=== PATIENT | male | born 1945 | race Caucasian/White ===

== ENCOUNTER 2022-10-04 11:13 | Observation (INO) | payer OTHER, MEDICARE, BC ==
[~2022-10-04] VITALS: Ht 182.9 cm; Wt 66.0 kg
[2022-10-04 12:24] LABS: BASOPHILS ABSOLUTE AUTO 0.04 K/mm3 (0.00-0.23); BASOPHILS PERCENT AUTO 0 % (0-2); EOSINOPHILS ABSOLUTE AUTO 0.02 K/mm3 (0.00-0.68); EOSINOPHILS PERCENT AUTO 0 % (0-6); Hematocrit 43.1 % (37.0-53.0); Hemoglobin 15.1 g/dL (13.5-17.5); IMMATURE GRAN ABSOLUTE AUTO 0.02 K/mm3 (0.00-0.10); IMMATURE GRAN PERCENT AUTO 0 % (0-1); LYMPHOCYTES ABSOLUTE AUTO 0.56 K/mm3 (0.84-5.20); LYMPHOCYTES PERCENT AUTO 6 % (21-46); MONOCYTES ABSOLUTE AUTO 0.87 K/mm3 (0.16-1.47); MONOCYTES PERCENT AUTO 9 % (4-13); Mean Corpuscular HGB 31.8 pg (26.0-34.0); Mean Corpuscular Volume 91 fL (80-100); Mean Platelet Volume 9.3 fL (9.1-12.4); NEUTROPHILS ABSOLUTE AUTO 8.22 K/mm3 (1.96-9.15); NEUTROPHILS PERCENT AUTO 85 % (41-73); Platelet Count 237 K/mm3 (150-400); RDW Coefficient Variation 14.3 % (11.7-14.2); RDW Standard Deviation 47.9 fL (35.1-46.3); Red Blood Cell Count 4.75 M/mm3 (4.30-5.90); White Blood Cell Count 9.73 K/mm3 (4.00-11.30)
[2022-10-04 12:44] LABS: Albumin, Blood 3.1 g/dL (3.4-5.0); Albumin/Globulin Ratio 0.8 (0.8-1.8); Bilirubin, Total 0.2 mg/dL (0.1-1.0); Bun/Creatinine Ratio 16.3 (12.0-20.0); Calcium, Blood 8.8 mg/dL (8.5-10.1); Creatinine, Blood 0.74 mg/dL (0.60-1.20); Globulin, Blood 3.8 g/dL (2.2-4.0); Potassium, Blood 4.1 mmol/L (3.5-5.5); Total Protein, Blood 6.9 g/dL (6.4-8.2)
[2022-10-04 13:13] LABS: Influenza A, PCR NEGATIVE (NEGATIVE); Influenza B, PCR NEGATIVE (NEGATIVE); Resp Syncytial Virus, PCR NEGATIVE (NEGATIVE); SARS-Cov-2 (COVID-19) PCR, MMC NEGATIVE (NEGATIVE)
[2022-10-04 13:47] LABS: Source, Urine Clean Catch
[2022-10-04 13:51] LABS: Appearance, Urine Hazy (Clear); Bilirubin, Urine Neg (Neg); Blood, Urine 1+ (Neg); Color, Urine Yellow (P-Yellow); Glucose Qualitative, Urine Neg (Neg); Ketones, Urine 1+ (Neg); Leukocyte Esterase, Urine 1+ (Neg); Nitrite, Urine Neg (Neg); Protein, Urine Neg (Neg); Specific Gravity, Urine 1.015 (1.003-1.022); Urobilinogen, Urine NORM (Normal)
[2022-10-04 14:21] LABS: Red Blood Cells, Urine 0-2 /hpf (0-2)
[2022-10-04 14:22] LABS: Bacteria Few /hpf; Squamous Epithelial Cells Rare /hpf (Few)
[2022-10-04 15:08] LABS: Thyroid Stimulating Hormone 1.54 uIU/mL (0.360-4.800)
[2022-10-04] MEDS ORDERED: LEVO750 PO (16:11)
[2022-10-04] MEDS ORDERED: PRIM250 PO (16:45)
[2022-10-04] MEDS ORDERED: Aspir 8181 MG PO (16:45)
[2022-10-04] MEDS ORDERED: Lisinopril2.5 MG PO (16:47)
[2022-10-04] MEDS ORDERED: GABA400 PO (16:47)
[2022-10-04] MEDS ORDERED: CELE200 PO (16:47)
[2022-10-04] MEDS ORDERED: ZYRTEC10 M2 PO (16:48)
[2022-10-04] MEDS ORDERED: Vitamin D1000 UNI1 PO (16:48)
[2022-10-04] MEDS ORDERED: Voltaren100 GM (16:49)
[2022-10-04] MEDS ORDERED: STIOLTO RESPIMAT4 G1 IH (16:49)
[2022-10-04] MEDS ORDERED: Flomax0.4 MG PO (16:49)
--- NOTE | 2022-10-04 20:51 | NUR ---
RECEIVED REPORT FROM LING STEWART AND PT ARRIVED TO UNIT FROM ED VIA BED TRANSPORT AT 1999. A&Ox4. PLEASANT AND COOPERATIVE WITH CARE. IV HAS BEEN REMOVED D/T PT ORIGINALLY BEING DC'D. WILL REPLACE D/T TELE STATUS AND IV ABx ORDERS.
[2022-10-05 05:18] LABS: BASOPHILS ABSOLUTE AUTO 0.04 K/mm3 (0.00-0.23); BASOPHILS PERCENT AUTO 1 % (0-2); EOSINOPHILS PERCENT AUTO 1 % (0-6); Hematocrit 39.1 % (37.0-53.0); Hemoglobin 13.7 g/dL (13.5-17.5); IMMATURE GRAN ABSOLUTE AUTO 0.03 K/mm3 (0.00-0.10); IMMATURE GRAN PERCENT AUTO 0 % (0-1); LYMPHOCYTES ABSOLUTE AUTO 1.49 K/mm3 (0.84-5.20); LYMPHOCYTES PERCENT AUTO 19 % (21-46); MONOCYTES ABSOLUTE AUTO 1.22 K/mm3 (0.16-1.47); MONOCYTES PERCENT AUTO 16 % (4-13); Mean Corpuscular HGB 31.8 pg (26.0-34.0); Mean Corpuscular Volume 91 fL (80-100); Mean Platelet Volume 9.1 fL (9.1-12.4); NEUTROPHILS ABSOLUTE AUTO 4.96 K/mm3 (1.96-9.15); NEUTROPHILS PERCENT AUTO 63 % (41-73); Platelet Count 197 K/mm3 (150-400); RDW Coefficient Variation 14.4 % (11.7-14.2); RDW Standard Deviation 48.1 fL (35.1-46.3); Red Blood Cell Count 4.31 M/mm3 (4.30-5.90); White Blood Cell Count 7.84 K/mm3 (4.00-11.30)
[2022-10-05 05:45] LABS: Bun/Creatinine Ratio 13.5 (12.0-20.0); Calcium, Blood 7.6 mg/dL (8.5-10.1); Creatinine, Blood 0.67 mg/dL (0.60-1.20); Potassium, Blood 3.8 mmol/L (3.5-5.5)
--- NOTE | 2022-10-05 06:25 | NUR ---
OXYGEN THERAPY TEACHER SUMMARY: A&Ox4. PLEASANT AND COOPERATIVE WITH CARE. STRENGTH IMPROVING SINCE COMING TO MEDICAL FLOOR AND HAS BEEN ABLE TO USE BEDSIDE URINAL ON HIS OWN. IV WAS REMOVED IN ED LAST NIGHT WHEN PT WAS BELIEVED TO BE DCing HOME, SO NEW IV PLACED IN RIGHT FA THIS AM FOR IV ABx LATER. TELE NSR W/ BBB. CRACKLES AUSCULTATED IN BILATERAL BASES. ESSENTIAL TREMOR AT BASLINE. VSS. WILL REPORT TO ONCOMING RN.
[2022-10-05] MEDS ORDERED: ALBU90OI6 INH (07:20)
[2022-10-05] MEDS ORDERED: SALONPAS PATCH1 EACH TOP (07:22)
[2022-10-05] MEDS ORDERED: NITR100CA PO (07:24)
[2022-10-05] MEDS ORDERED: OMEGA-3 1,0501 EACH PO (07:25)
[2022-10-05] MEDS ORDERED: ZINC OXIDE57 GM TOP (07:25)
[2022-10-05] MEDS ORDERED: STIOLTO RESPIMAT4 G1 IH (07:26)
--- NOTE | 2022-10-05 16:24 | NUR ---
DAYSHIFT SUMMARY Patient admitted for metabolic encephalopathy. Alert & oriented x4, pleasant/cooperative with care. Therapy worked with pateint, and recommends SBA w/ FWW. Patient ambulates to BR w/ staff supervision, steady gait. IV Levaquin for UTI started today. Vitals stable, afebrile, sats stable on RA. Will continue plan of care.
--- NOTE | 2022-10-06 07:21 | NUR ---
CAFETERIA ATTENDANT SUMMARY: A&Ox4. PLEASANT AND COOPERATIVE WITH CARE. CALLS APPROPRIATELY FOR FOR ASSISTANCE AND IS ABLE TO COMMUNICATE NEEDS. AMBULATING TO BATHROOM AND BACK WITH GB & FWW. NO C/O PAIN OR DISCOMFORT. NO ACUTE CONCERNS T/O THE NIGHT. WILL REPORT TO ONCOMING RN.
[2022-10-06] MEDS ORDERED: LEVFLO500 PO (10:43)
--- NOTE | 2022-10-06 11:33 | NUR ---
No acute changes to patient status, vital signs stable, afebrile. Denies pain/discomfort when voiding. Urine loli colored, pt prefers to drinking coffee. Educated patient on increasing water intake w/ ABX treatment. MD ordered patient to be discharge home today. Reviewed discharge teaching w/ patient & spouse, verbalized understnading. Removed tele & IV. Patient left unit at 1110.
== END 2022-10-06 11:21 | disposition home or self-care (01) ==
LOC: ER 11:13 → MEDS 11:14 → ENPENDDIS 10-06 10:05 → MEDS 10-06 11:21
PROVIDERS: Emergency Medicine; ADMIT Hospitalist
DX: N39.0 Urinary tract infection, site not specified (principal); J44.0 Chronic obstructive pulmonary disease with (acute) lower respiratory infection; J18.9 Pneumonia, unspecified organism; I10 Essential (primary) hypertension; F17.210 Nicotine dependence, cigarettes, uncomplicated; G93.41 Metabolic encephalopathy; I25.118 Atherosclerotic heart disease of native coronary artery with other forms of angina pectoris; Z20.822 Contact with and (suspected) exposure to COVID-19; Z79.82 Long term (current) use of aspirin; Z88.0 Allergy status to penicillin; Z88.1 Allergy status to other antibiotic agents; Z91.013 Allergy to seafood
CPT/HCPCS: 0241U; 70450; 71045; 80048; 80053; 81001; 82607; 82746; 83880; 84443; 84484; 85025; 87086; 93005; 93010; 96361; 96365; 97161; 97530; 99285-25; A9270; G0378; J1956; J7030

== ENCOUNTER 2022-11-13 16:50 | Observation (INO) | payer OTHER, MEDICARE, BC ==
[~2022-11-13] VITALS: Ht 182.9 cm; Wt 63.5 kg
[~2022-11-13 16:50] MED LIST: ALBU90OI6 INH; Aspir 8181 MG PO; CELE200 PO; Flomax0.4 MG PO; GABA400 PO; LEVFLO500 PO; LEVO750 PO; Lisinopril2.5 MG PO; NITR100CA PO; OMEGA-3 1,0501 EACH PO; PRIM250 PO; SALONPAS PATCH1 EACH TOP; STIOLTO RESPIMAT4 G1 IH; Vitamin D1000 UNI1 PO; Voltaren100 GM; ZINC OXIDE57 GM TOP; ZYRTEC10 M2 PO
--- NOTE | 2022-11-13 23:15 | NUR ---
THE PATIENT IS A 77 YEAR-OLD MALE WITH A DIAGNOSIS OF UTI. TRANSFERRED FROM THE ED THIS EVENING. A&OX4. PATIENT EFFECTIVELY COMMUNICATES NEEDS. VSS. O2 >90% ON RA. RR EVEN AND UNLABORED. MARSH CATHETER DRAINING TO GRAVITY. NO ACUTE SIGNS OR SYMPTOMS AT THIS TIME. PATIENT DENIES PAIN. CALL LIGHT WITHIN REACH. BED LOW AND LOCKED. THIS RN WILL CONTINUE TO CLOSELY MONITOR.
--- NOTE | 2022-11-14 03:37 | NUR ---
PEDIATRIC CARDIOLOGIST SUMMARY THE PATIENT IS A 77 YEAR-OLD MALE WITH A DIAGNOSIS OF A UTI. A&OX4. PATIENT EFFECTIVELY COMMUNICATES NEEDS. COOPERATIVE WITH CARE. VSS. O2 >90% ON RA. WHEEZING AUSCULTATED THROUGHOUT LUNG ROSEN. PATIENT REPORTS ACTIVE TOBACCO USE. RR EVEN AND UNLABORED AT REST. PATIENT DENIES SOB. MODERATE ASSISTANCE REQUIRED FOR TRANSFER DUE TO GENERALIZED WEAKNESS. MARSH CATHETER DRAINING TO GRAVITY, [facility]. NO PAIN REPORTED SHIFT. LR INFUSING @100 ML/HR IN RIGHT UPPER ARM IV. NO ACUTE CONCERNS THIS SHIFT. CALL LIGHT WITHIN REACH. BED LOW AND LOCKED. THIS RN WILL CONTINUE TO CLOSELY MONITOR.
[2022-11-14 05:19] LABS: BASOPHILS ABSOLUTE AUTO 0.05 K/mm3 (0.00-0.23); BASOPHILS PERCENT AUTO 1 % (0-2); EOSINOPHILS ABSOLUTE AUTO 0.02 K/mm3 (0.00-0.68); EOSINOPHILS PERCENT AUTO 0 % (0-6); Hematocrit 38.3 % (37.0-53.0); Hemoglobin 13.6 g/dL (13.5-17.5); IMMATURE GRAN ABSOLUTE AUTO 0.07 K/mm3 (0.00-0.10); IMMATURE GRAN PERCENT AUTO 1 % (0-1); LYMPHOCYTES ABSOLUTE AUTO 1.07 K/mm3 (0.84-5.20); LYMPHOCYTES PERCENT AUTO 10 % (21-46); MONOCYTES PERCENT AUTO 13 % (4-13); Mean Corpuscular HGB 31.3 pg (26.0-34.0); Mean Corpuscular HGB Conc 35.5 g/dL (31.5-36.5); Mean Corpuscular Volume 88 fL (80-100); Mean Platelet Volume 8.9 fL (9.1-12.4); NEUTROPHILS ABSOLUTE AUTO 8.35 K/mm3 (1.96-9.15); NEUTROPHILS PERCENT AUTO 76 % (41-73); Platelet Count 229 K/mm3 (150-400); RDW Coefficient Variation 14.4 % (11.7-14.2); RDW Standard Deviation 46.8 fL (35.1-46.3); Red Blood Cell Count 4.34 M/mm3 (4.30-5.90); White Blood Cell Count 10.96 K/mm3 (4.00-11.30)
[2022-11-14 05:55] LABS: Bun/Creatinine Ratio 15.7 (12.0-20.0); Calcium, Blood 8.1 mg/dL (8.5-10.1); Creatinine, Blood 0.76 mg/dL (0.60-1.20)
--- NOTE | 2022-11-14 18:08 | NUR ---
SHIFT SUMMARY PT A&OX4 AND IN PLEASENT MOOD T/O SHIFT. MARSH IN PLACE DRAINING TO GRAVITY. VSS. TOLERATING PO INTAKE WELL. CALL LIGHT W/IN REACH. WORKED W/ PHYSICAL THERAPY THIS SHIFT, SBA W/ FWW. ENCOURAGE TO AMBULATE. CXRAY THIS SHIFT-CLEAR.
--- NOTE | 2022-11-15 04:47 | NUR ---
FOREST ECOLOGIST SUMMARY NO ACUTE EVENTS. PT A/OX4. ABLE TO MAKE NEEDS KNOWN. PLAN F/DISCHARGE HOME 11/15/22. PT IN GOOD SPIRIT/HUMOR. BED LOCKED/LOW. CALL LIGHT IN REACH.
[2022-11-15 05:57] LABS: BASOPHILS ABSOLUTE AUTO 0.03 K/mm3 (0.00-0.23); BASOPHILS PERCENT AUTO 0 % (0-2); EOSINOPHILS ABSOLUTE AUTO 0.06 K/mm3 (0.00-0.68); EOSINOPHILS PERCENT AUTO 1 % (0-6); Hematocrit 39.6 % (37.0-53.0); Hemoglobin 13.8 g/dL (13.5-17.5); IMMATURE GRAN ABSOLUTE AUTO 0.03 K/mm3 (0.00-0.10); IMMATURE GRAN PERCENT AUTO 0 % (0-1); LYMPHOCYTES ABSOLUTE AUTO 1.14 K/mm3 (0.84-5.20); LYMPHOCYTES PERCENT AUTO 14 % (21-46); MONOCYTES ABSOLUTE AUTO 1.03 K/mm3 (0.16-1.47); MONOCYTES PERCENT AUTO 13 % (4-13); Mean Corpuscular HGB 31.3 pg (26.0-34.0); Mean Corpuscular HGB Conc 34.8 g/dL (31.5-36.5); Mean Corpuscular Volume 90 fL (80-100); Mean Platelet Volume 9.4 fL (9.1-12.4); NEUTROPHILS ABSOLUTE AUTO 5.92 K/mm3 (1.96-9.15); NEUTROPHILS PERCENT AUTO 72 % (41-73); Platelet Count 211 K/mm3 (150-400); RDW Coefficient Variation 14.5 % (11.7-14.2); RDW Standard Deviation 47.9 fL (35.1-46.3); Red Blood Cell Count 4.41 M/mm3 (4.30-5.90); White Blood Cell Count 8.21 K/mm3 (4.00-11.30)
--- NOTE | 2022-11-15 14:13 | NUR ---
DISCHARGE PT A&OX4, SPOUSE @ BEDSIDE DURING DC INSTRUCTION. MARSH AND IV REMOVED. PT VOIDED, POST BLADDER SCAN LESS THAN 100. TOLERATING PO INTAKE. RA. AMBULATING SBA. ESCORT OUT TO [place], SPOUSE TO PROVIDE TRANSPORT HOME.
== END 2022-11-15 15:21 | disposition home or self-care (01) ==
LOC: ER 16:50 → MEDS 16:51
PROVIDERS: Internal Medicine; ADMIT Family Medicine
DX: G92.8 Other toxic encephalopathy (principal); G25.0 Essential tremor; I10 Essential (primary) hypertension; I25.10 Atherosclerotic heart disease of native coronary artery without angina pectoris; E44.0 Moderate protein-calorie malnutrition; J44.9 Chronic obstructive pulmonary disease, unspecified; N40.1 Benign prostatic hyperplasia with lower urinary tract symptoms; R33.8 Other retention of urine; Z68.21 Body mass index [BMI] 21.0-21.9, adult
CPT/HCPCS: 36415; 71045; 80048; 83605; 85025; 94760; 96372; 97116; 97162; 97165; 97530; 97535; 99285; A9270; G0378; J1650; J1956; J7030; J7120

== ENCOUNTER 2023-09-13 16:33 | Emergency (ER) | payer OTHER ==
[~2023-09-13] VITALS: Ht 182.9 cm; Wt 72.6 kg
[2023-09-13 17:31] LABS: Albumin, Blood 3.4 g/dL (3.4-5.0); Albumin/Globulin Ratio 1.1 (0.8-1.8); Bilirubin, Total 0.2 mg/dL (0.1-1.0); Bun/Creatinine Ratio 15.2 (12.0-20.0); Calcium, Blood 7.9 mg/dL (8.5-10.1); Creatinine, Blood 0.66 mg/dL (0.60-1.20); Globulin, Blood 3.2 g/dL (2.2-4.0); Potassium, Blood 4.5 mmol/L (3.5-5.5); Total Protein, Blood 6.6 g/dL (6.4-8.2)
[2023-09-13 19:30] VITALS: BP 104/59
== END 2023-09-13 19:50 | disposition home or self-care (01) ==
LOC: ER 16:33
PROVIDERS: Emergency Medicine
DX: S01.411A Laceration without foreign body of right cheek and temporomandibular area, initial encounter (principal); F10.90 Alcohol use, unspecified, uncomplicated; W01.10XA Fall on same level from slipping, tripping and stumbling with subsequent striking against unspecified object, initial encounter; Z91.041 Radiographic dye allergy status; Z88.0 Allergy status to penicillin; Z88.1 Allergy status to other antibiotic agents; Z91.013 Allergy to seafood; Z88.6 Allergy status to analgesic agent; Z88.8 Allergy status to other drugs, medicaments and biological substances; I10 Essential (primary) hypertension; J44.9 Chronic obstructive pulmonary disease, unspecified; I25.10 Atherosclerotic heart disease of native coronary artery without angina pectoris; F17.210 Nicotine dependence, cigarettes, uncomplicated
CPT/HCPCS: 12015; 70450; 72125; 80053; 93005; 93010; 99285-25

== ENCOUNTER 2025-05-25 20:39 | Emergency (ER) | payer OTHER ==
[~2025-05-25] VITALS: Ht 188 cm; Wt 86.2 kg
[2025-05-25 21:00] VITALS: BP 118/67
[2025-05-25] MEDS ORDERED: NS 1,000 ML IV SCH (21:45)
== END 2025-05-25 23:24 | disposition home or self-care (01) ==
LOC: ER 20:39
DX: S09.90XA Unspecified injury of head, initial encounter (principal); F10.90 Alcohol use, unspecified, uncomplicated; I10 Essential (primary) hypertension; J44.9 Chronic obstructive pulmonary disease, unspecified; I25.10 Atherosclerotic heart disease of native coronary artery without angina pectoris; F17.210 Nicotine dependence, cigarettes, uncomplicated; Z88.0 Allergy status to penicillin; Z88.1 Allergy status to other antibiotic agents; Z91.041 Radiographic dye allergy status; Z91.013 Allergy to seafood; Z79.82 Long term (current) use of aspirin; Z79.899 Other long term (current) drug therapy; W18.30XA Fall on same level, unspecified, initial encounter
CPT/HCPCS: 70450; 93005; 93010; 96360; 96361; 99284-25; J7030